=== PATIENT | male | born 1995 | race Caucasian/White ===

== ENCOUNTER 2017-06-08 17:22 | Emergency (ER) | payer SELFPAY ==
[~2017-06-08] VITALS: Ht 175.3 cm; Wt 95.8 kg
[~2017-06-08 17:22] MED LIST: CETI5TAB31 PO
[2017-06-08 17:27] VITALS: Ht 175.3 cm; Wt 95.8 kg
[2017-06-08] MEDS ORDERED: ONDANSETRON INJ 2 MG/ML 2 ML VIAL IV STA (18:09)
[2017-06-08] MEDS ORDERED: ACETAMINOPHEN IV 100 ML IV STA (18:09)
[2017-06-08] MEDS ORDERED: CEFTRIAXONE SOD INJ 1 GM ADDVIAL IV STA (18:09)
[2017-06-08] MEDS ORDERED: AMX875 PO (18:24)
[2017-06-08] MEDS ORDERED: OSEL75CA23 PO (18:24)
[2017-06-08 18:35] VITALS: O2SAT 100
[2017-06-08 18:52] LABS: BASO % 0.2 %; BASO ABS # 0.02 K/uL (0-0.2); EOS % 1.2 %; EOS ABS # 0.12 K/uL (0-0.5); HEMATOCRIT 39.6 % (42-52); HEMOGLOBIN 14.2 g/dL (14.0-18.0); IG# 0.09 K/uL (0.00-0.02); LYMPH % 7.5 %; LYMPH ABS # 0.73 K/uL (1.2-3.4); MEAN CELL VOLUME 86.7 fL (80-100); MEAN CORPUSCULAR HEMOGLOBIN 31.1 pg (25-34); MEAN CORPUSCULAR HGB CONC 35.9 g/dl (32-36); MEAN PLATELET VOLUME 9.3 fL (7.4-10.4); MONO % 7.3 %; MONO ABS # 0.71 K/uL (0.11-0.59); NEUT % 82.9 %; PLATELET COUNT 246 K/uL (130-400); RED CELL DISTRIBUTION WIDTH CV 12.5 % (11.5-14.5); RED CELL DISTRIBUTION WIDTH SD 40.2 fL (36.4-46.3); WHITE BLOOD COUNT 9.77 K/uL (4.8-10.8)
[2017-06-08 19:10] LABS: ALBUMIN 4.8 gm/dl (3.4-5.0); CALCIUM 9.5 mg/dl (8.5-10.1); CREATININE 1.04 mg/dl (0.60-1.40)
[2017-06-08 19:13] LABS: TOTAL PROTEIN 8.3 gm/dl (6.4-8.2)
[2017-06-08 19:48] LABS: INFLUENZA B ANTIGEN Neg for Influ B (NEG)
--- NOTE | 2017-06-08 20:07 | DIAGNOSTIC IMAGING REPORT ---
ABDOMEN 2VIEW W/PA CHEST RTN HISTORY: 22 years-old Male Pt c/o epigastric pain acute epigastric abdominal pain COMPARISON: Chest radiograph 05/22/2006 TECHNIQUE: PA view of the chest with erect and supine views of the abdomen FINDINGS: Cardiomediastinal and hilar silhouettes are within normal limits. No pneumothorax, pleural effusion, focal airspace consolidation or overt pulmonary edema. The bones of the chest appear grossly intact. No pneumoperitoneum on the upright projection. Bowel gas pattern is nonobstructive. There is no organomegaly, urolith or fracture identified. IMPRESSION: 1. Nonobstructive bowel gas pattern without pneumoperitoneum. 2. No acute cardiopulmonary process. The above report was generated using voice recognition software. It may contain grammatical, syntax or spelling errors. Electronically signed by: Tyler Albrecht M.D. 06/08/2017 8:06 PM Dictated Date/Time: 06/08/2017 8:04 PM
[2017-06-08] MEDS ORDERED: ONDA4TAB10 SL (20:13)
[2017-06-08] MEDS ORDERED: ONDANSETRON HOME PACK 4MG OD TAB PO ONE (20:15)
--- NOTE | 2017-06-08 20:27 | EMERGENCY ROOM VISIT NOTE ---
History Report prepared by Saeid: Abimbola Jefferson Under the Supervision of: Dr. Miguelito Velarde M.D. First contact with patient: 17:57 Chief Complaint: FLU LIKE SX Stated Complaint: FLU, WEAKNESS, VOMITING BLOOD History of Present Illness The patient is a 22 year old male who presents to the Emergency Room with complaints of persistent vomiting starting around 4 hours ago. The patient has been feeling weak for the past week. He had a fever yesterday. Today his symptoms worsened, so he went to [facility] [facility]. He was diagnosed with the flu and ear infection and started on Tamiflu. 10 minutes after he took his first dose of Tamiflu, he started vomiting. He vomited 3 times and the last time he vomited blood. He is nauseous and cannot keep anything down. He is having chest pain and abdominal pain. He has a history of bronchitis at which time he had coughed up blood. Source of History: patient Onset: 4 hours ago Position: other (global) Quality: other (vomiting) Timing: other (persistent) Associated Symptoms: + fevers, + chest pain, + nausea, + abdominal pain, + weakness Review of Systems See HPI for pertinent positives & negatives. A total of 10 systems reviewed and were otherwise negative. Past Medical & Surgical Medical Problems: (1) Asthma, Unspecified Family History Cancer Diabetes mellitus FH: heart disease Hypertension Social History Smoking Status: Never Smoker Alcohol Use: none Occupation Status: employed, student Current/Historical Medications Scheduled Amoxicillin (Amoxicillin), 875 MG PO BID Ondasetron Odt (Zofran Odt), 4 MG SL Q6H Oseltamivir Phosphate (Tamiflu), 75 MG PO BID Allergies Coded Allergies: CI Pigment Blue 63 (Unverified Allergy, Unknown, VOMITING BLOOD, 06/08/17) Oseltamivir (Unverified Allergy, Unknown, VOMITING BLOOD, 06/08/17) Vancomycin (Unverified Allergy, Unknown, VOMITING, 06/08/17) Physical Exam Vital Signs Date Time Temp Pulse Resp B/P (MAP) Pulse Ox O2 Delivery O2 Flow Rate FiO2 06/08/17 20:39 37.0 88 20 118/68 98 06/08/17 18:50 110 06/08/17 18:47 109 20 149/77 100 Room Air 06/08/17 18:35 100 Room Air 06/08/17 17:27 38.3 113 20 132/86 99 Room Air Physical Exam GENERAL: Patient is a healthy-appearing well-nourished male HEAD: Normocephalic atraumatic EYES: Ocular movements intact pupils equal and react to light OROPHARYNX mucous membranes are moist no exudates present no erythema or edema present NECK: Supple no nuchal rigidity CHEST: Good equal expansion LUNGS: Clear and equal to auscultation CARDIAC: Normal S1 and S2 ABDOMEN: Soft nontender no guarding BACK: No CVA tenderness EXTREMITIES: No pain upon palpation normal muscle strength in all groups no clubbing cyanosis or edema NEURO: Patient is following commands and answering questions appropriately. Alert and oriented x3 Cranial Nerves 2-12 grossly intact Medical Decision & Procedures ER Provider Diagnostic Interpretation: X-ray results as stated below per interpretation by me and the radiologist: ABDOMEN 2VIEW W/PA CHEST RTN HISTORY: 22 years-old Male Pt c/o epigastric pain acute epigastric abdominal pain COMPARISON: Chest radiograph 05/22/2006 TECHNIQUE: PA view of the chest with erect and supine views of the abdomen FINDINGS: Cardiomediastinal and hilar silhouettes are within normal limits. No pneumothorax, pleural effusion, focal airspace consolidation or overt pulmonary edema. The bones of the chest appear grossly intact. No pneumoperitoneum on the upright projection. Bowel gas pattern is nonobstructive. There is no organomegaly, urolith or fracture identified. IMPRESSION: 1. Nonobstructive bowel gas pattern without pneumoperitoneum. 2. No acute cardiopulmonary process. The above report was generated using voice recognition software. It may contain grammatical, syntax or spelling errors. Electronically signed by: Tyler Albrecht M.D. 06/08/2017 8:06 PM Dictated Date/Time: 06/08/2017 8:04 PM Laboratory Results 06/08/17 18:44 Red Blood Count 4.57, Mean Corpuscular Volume 86.7, Mean Corpuscular Hemoglobin 31.1, Mean Corpuscular Hemoglobin Concent 35.9, Mean Platelet Volume 9.3, Neutrophils (%) (Auto) 82.9, Lymphocytes (%) (Auto) 7.5, Monocytes (%) (Auto) 7.3, Eosinophils (%) (Auto) 1.2, Basophils (%) (Auto) 0.2, Neutrophils # (Auto) 8.10, Lymphocytes # (Auto) 0.73, Monocytes # (Auto) 0.71, Eosinophils # (Auto) 0.12, Basophils # (Auto) 0.02 06/08/17 18:44 Test 06/08/17 18:40 06/08/17 18:44 Urine Color YELLOW Urine Appearance CLEAR (CLEAR) Urine pH >= 9.0 (4.5-7.5) Urine Specific [place] 1.022 (1.000-1.030) Urine Protein NEG (NEG) Urine Glucose (UA) NEG (NEG) Urine Ketones 2+ (NEG) Urine Occult Blood NEG (NEG) Urine Nitrite NEG (NEG) Urine Bilirubin NEG (NEG) Urine Urobilinogen NEG (NEG) Urine Leukocyte Esterase NEG (NEG) Influenza Type A Antigen POS for Influ A (NEG) Influenza Type B Antigen Neg for Influ B (NEG) White Blood Count 9.77 K/uL (4.8-10.8) Red Blood Count 4.57 M/uL (4.7-6.1) Hemoglobin 14.2 g/dL (14.0-18.0) Hematocrit 39.6 % (42-52) Mean Corpuscular Volume 86.7 fL (80-100) Mean Corpuscular Hemoglobin 31.1 pg (25-34) Mean Corpuscular Hemoglobin Concent 35.9 g/dl (32-36) Platelet Count 246 K/uL (130-400) Mean Platelet Volume 9.3 fL (7.4-10.4) Neutrophils (%) (Auto) 82.9 % Lymphocytes (%) (Auto) 7.5 % Monocytes (%) (Auto) 7.3 % Eosinophils (%) (Auto) 1.2 % Basophils (%) (Auto) 0.2 % Neutrophils # (Auto) 8.10 K/uL (1.4-6.5) Lymphocytes # (Auto) 0.73 K/uL (1.2-3.4) Monocytes # (Auto) 0.71 K/uL (0.11-0.59) Eosinophils # (Auto) 0.12 K/uL (0-0.5) Basophils # (Auto) 0.02 K/uL (0-0.2) RDW Standard Deviation 40.2 fL (36.4-46.3) RDW Coefficient of Variation 12.5 % (11.5-14.5) Immature Granulocyte % (Auto) 0.9 % Immature Granulocyte # (Auto) 0.09 K/uL (0.00-0.02) Anion Gap 8.0 mmol/L (3-11) Est Creatinine Clear Calc Drug Dose 129.4 ml/min Estimated GFR () 119.2 Estimated GFR (Non- 102.9 BUN/Creatinine Ratio 9.3 (10-20) Calcium Level 9.5 mg/dl (8.5-10.1) Total Bilirubin 0.8 mg/dl (0.2-1) Direct Bilirubin 0.2 mg/dl (0-0.2) Aspartate Amino Transf (AST/SGOT) 26 U/L (15-37) Alanine Aminotransferase (ALT/SGPT) 42 U/L (12-78) Alkaline Phosphatase 84 U/L (45-117) Total Protein 8.3 gm/dl (6.4-8.2) Albumin 4.8 gm/dl (3.4-5.0) Monoscreen NEG (NEG) Labs reviewed by ED physician. Medications Administered Medications (Trade) Dose Ordered Sig/Celia Route Start Time Stop Time Status Last Admin Dose Admin Acetaminophen 100 ml @ 400 mls/hr NOW STAT IV 06/08/17 18:09 06/08/17 18:23 DC 06/08/17 18:41 400 MLS/HR Ondansetron HCl (Zofran Inj) 4 mg NOW STAT IV 06/08/17 18:09 06/08/17 18:12 DC 06/08/17 18:40 4 MG Ceftriaxone Sodium (Rocephin Inj) 1 gm NOW STAT IV 06/08/17 18:09 06/08/17 18:12 DC 06/08/17 18:41 1 GM ED Course 1802: Past medical records reviewed. The patient was evaluated in room C11B. A complete history and physical examination was performed. 1808: Rocephin Inj 1 gm IV, Zofran Inj 4 mg IV, Acetaminophen 100 ml @ 400 mls/ hr IV. 2011: Upon reexamination the patient is feeling better. I discussed results and treatment plan with the patient. He verbalizes agreement and understanding. The patient is ready for discharge. 2015: Ondansetron HCl 1 homepack PO. Medical Decision Differential diagnosis: Etiologies such as viral syndrome, otitis, pharyngitis, pneumonia, influenza, meningitis, urinary tract infection, sepsis, bacteremia, as well as others were entertained. This is a 22-year-old male who presents emergency department complaining of vomiting blood after taking Tamiflu and amoxicillin. Serial abdominal examinations were performed patient emergency department the patient exhibited a surgical abdomen or even abdominal tenderness. In addition the patient does not have an elevation in his white blood count cell count. He is positive for the flu. The patient was given Zofran and Toradol in the emergency department. Repeat examination revealed improvement patient's symptoms. I do feel this patient as well as discharged home however told to return if fevers or out of control patient was in agreement with the treatment plan. Medication Reconcilliation Current Medication List: was personally reviewed by me Blood Pressure Screening Patient's blood pressure: Elevated blood pressure Blood pressure disposition: Elevated BP felt to be situational Impression Primary Impression: Influenza A Scribe Attestation The scribe's documentation has been prepared under my direction and personally reviewed by me in its entirety. I confirm that the note above accurately reflects all work, treatment, procedures, and medical decision making performed by me. Departure Information Dispostion Home / Self-Care Prescriptions Ondasetron Odt (ZOFRAN ODT) 4 Mg Tab 4 MG SL Q6H for Nausea, #6 TAB Prov: Miguelito Velarde MD 06/08/17 Referrals No Doctor, Assigned (PCP) Forms HOME CARE DOCUMENTATION FORM, IMPORTANT VISIT INFORMATION Patient Instructions ED Flu, My [facility] Additional Instructions Increase fluids next 48 hours Take 600 mg Ibuprofen every 6 hours Take 1000 mg Tylenol every 6 hours You have been examined and treated today on an emergency basis only. This is not a substitute for, or an effort to provide, complete comprehensive medical care. It is impossible to recognize and treat all injuries or illnesses in a single emergency department visit. It is therefore important that you follow up closely with Your PCP. Call as soon as possible for an appointment. Thank you for your time and consideration. I look forward to speaking with you again soon. Please don't hesitate to call us if you have any questions.
[2017-06-08 20:39] VITALS: BP 118/68; PULSE 88; TEMP 37; O2SAT 98
[2017-06-12 14:46] LABS: EBV EARLY ANTIGEN AB < 9.00 U/ML
== END 2017-06-08 20:44 | disposition home or self-care (01) ==
LOC: C.EDB 17:25 → C.EDC 20:44
DX: J09.X2 Influenza due to identified novel influenza A virus with other respiratory manifestations (principal); H66.90 Otitis media, unspecified, unspecified ear; J45.909 Unspecified asthma, uncomplicated; Z83.3 Family history of diabetes mellitus; Z82.49 Family history of ischemic heart disease and other diseases of the circulatory system